=== PATIENT | female | born 1950 | race Caucasian/White ===

== ENCOUNTER → 2019-10-06 | Outpatient (CLI) | payer MEDICARE, MEDICAID, SELFPAY | END | disposition home or self-care (01) | LOC: SLB 10:30 → EDSTATUS 10-13 11:40 | PROVIDERS: ATTEND Colon & Rectal Surgery | DX: Z01.818 Encounter for other preprocedural examination (principal); Z11.59 Encounter for screening for other viral diseases; K80.10 Calculus of gallbladder with chronic cholecystitis without obstruction | CPT/HCPCS: U0003-CS ==

== ENCOUNTER 2019-11-17 09:52 | Day surgery (SDC) | payer MEDICARE, MEDICAID, SELFPAY ==
[2019-11-14 14:54] LABS: BASOPHILS % (AUTO) 0.4 % (0.0-2.0); EOSINOPHILS # (AUTO) 0.2 K/uL (0.0-0.4); EOSINOPHILS % (AUTO) 3.4 % (0.0-4.0); HEMOGLOBIN 8.4 g/dL (12.0-16.0); LYMPHOCYTES # (AUTO) 2.1 K/uL (1.0-5.5); LYMPHOCYTES % (AUTO) 35.3 % (20.5-51.5); MEAN CORPUSCULAR HEMOGLOBIN 38 pg (27-31); MEAN CORPUSCULAR HGB CONC 35 % (32-36); MEAN CORPUSCULAR VOLUME 109 fL (79.0-98.0); MONOCYTES # (AUTO) 0.2 K/uL (0.0-1.0); MONOCYTES % (AUTO) 2.7 % (1.7-9.3); NEUTROPHILS # (AUTO) 3.4 K/uL (1.8-7.7); NEUTROPHILS % (AUTO) 58.2 % (40.0-70.0); PLATELET COUNT (AUTO) 221 K/uL (130-430); RED BLOOD CELL COUNT(AUTO) 2.21 MIL/uL (4.2-6.2); RED CELL DISTRIBUTION WIDTH 33.4 % (9.0-15.0); WHITE BLOOD COUNT (AUTO) 5.9 K/uL (4.8-10.8)
[2019-11-14 14:57] LABS: BILIRUBIN,URINE 1+ (NEGATIVE); BLOOD, URINE NEGATIVE (NEGATIVE); CLARITY/URINE CLEAR (CLEAR); COLOR,URINE YELLOW (YELLOW); GLUCOSE,URINE NEGATIVE (NEGATIVE); KETONES,URINE 1+ (NEGATIVE); LEUKOCYTE ESTERASE ,URINE NEGATIVE (NEGATIVE); NITRITE, URINE NEGATIVE (NEGATIVE); PH,URINE 5.5 (5.0-8.0); PROTEIN URINE NEGATIVE (NEGATIVE); UROBILINOGEN,URINE 0.2 (0.2-1.0)
[2019-11-14 15:04] LABS: PROTHROMBIN TIME 10.3 SECS (9.5-12.5)
[2019-11-14 15:06] LABS: CALCIUM 8.7 mg/dL (8.4-11.0); CREATININE 0.86 mg/dL (0.55-1.30); POTASSIUM 4.2 mmol/L (3.5-5.1); TOTAL BILIRUBIN 0.7 mg/dL (0.0-1.0)
[~2019-11-17] VITALS: Ht 162.6 cm; Wt 61.2 kg
[2019-11-17] MEDS ORDERED: PROPOFOL 200MG/ 20ML VIAL (DIPRIVAN) IV ONE (12:29)
[2019-11-17] MEDS ORDERED: LIDOCAINE 2%, 20 ML MDV INJ ONE (12:29)
[2019-11-17] MEDS ORDERED: HYDROmorphone 1 MG INJ. 1 MG/ML AMPUL IVP PRN ×2 (13:15)
[2019-11-17] MEDS ORDERED: LR 1,000 ML IV SCH (13:15)
[2019-11-17] MEDS ORDERED: MEPERIDINE HCL/PF 25 MG/ML DISP.SYRIN IVP PRN (13:15)
[2019-11-17] MEDS ORDERED: ONDANSETRON HCL 4 MG/2 ML VIAL IVP PRN (13:15)
[2019-11-17] MEDS ORDERED: D5/0.45 NS 1,000 ML IV SCH (13:33)
[2019-11-17 14:09] VITALS: BP_SYST 121
== END 2019-11-17 15:00 | disposition home or self-care (01) ==
LOC: SDS 09:52 → SMU 09:57 → SDS 15:00
PROVIDERS: ATTEND Colon & Rectal Surgery
DX: D64.9 Anemia, unspecified (principal); K29.80 Duodenitis without bleeding; K44.9 Diaphragmatic hernia without obstruction or gangrene; K80.10 Calculus of gallbladder with chronic cholecystitis without obstruction; M81.0 Age-related osteoporosis without current pathological fracture; Z79.84 Long term (current) use of oral hypoglycemic drugs; Z79.899 Other long term (current) drug therapy
CPT/HCPCS: 36415; 43239; 45378; 80053; 81003; 85025; 85610; 85730; 87426; 88305; 88312; 88313; J2001; J2704

== ENCOUNTER 2019-11-24 07:23 | Day surgery (SDC) | payer MEDICARE, MEDICAID, SELFPAY ==
[~2019-11-24] VITALS: Ht 162.6 cm; Wt 61.2 kg
[~2019-11-24 07:23] MED LIST: CEFAZOLIN SOD 1 GM in D5W 50 ML IV ONE
[2019-11-24] MEDS ORDERED: NS IRRIG SOLN 1000 ML IR ONE (09:51)
[2019-11-24] MEDS ORDERED: SUGAMMADEX SODIUM 200 MG/2 ML VIAL IV ONE (09:51)
[2019-11-24] MEDS ORDERED: ISOFLURANE 15 MIN GAS INH ONE (09:51)
[2019-11-24] MEDS ORDERED: MIDAZOLAM HCL 5 MG/5 ML VIAL IVP ONE (09:51)
[2019-11-24] MEDS ORDERED: ONDANSETRON HCL 4 MG/2 ML VIAL IVP ONE (09:51)
[2019-11-24] MEDS ORDERED: MEPERIDINE HCL/PF 100 MG/ML AMP IM ONE (09:51)
[2019-11-24] MEDS ORDERED: DEXAMETHASONE SOD PHOSPHATE 4 MG/ML VIAL IVP ONE (09:51)
[2019-11-24] MEDS ORDERED: LR 1,000 ML IV.SOLN IV ONE (09:51)
[2019-11-24] MEDS ORDERED: KETOROLAC TROMETHAMINE 30 MG VIAL IVP ONE (09:51)
[2019-11-24] MEDS ORDERED: ROCURONIUM BROMIDE 10 MG/ML (ZEMURON) IV ONE (09:51)
[2019-11-24] MEDS ORDERED: PROPOFOL 200MG/ 20ML VIAL (DIPRIVAN) IV ONE (09:51)
[2019-11-24] MEDS ORDERED: BUPIVACAINE /PF 0.25% 30 ML VIAL INJ ONE (09:51)
[2019-11-24] MEDS ORDERED: fentaNYL CITRATE/PF 100 MCG/2 ML AMP IVP ONE (09:51)
[2019-11-24] MEDS ORDERED: D5/0.45 NS 1,000 ML IV SCH (10:58)
[2019-11-24] MEDS ORDERED: LR 1,000 ML IV SCH (11:00)
[2019-11-24] MEDS ORDERED: MEPERIDINE HCL/PF 25 MG/ML DISP.SYRIN IVP PRN (11:00)
[2019-11-24] MEDS ORDERED: ONDANSETRON HCL 4 MG/2 ML VIAL IVP PRN (11:00)
[2019-11-24] MEDS ORDERED: METOCLOPRAMIDE HCL 10 MG/2 ML VIAL IVP PRN (11:00)
[2019-11-24] MEDS ORDERED: HYDROcodone/ACETAMIN 5-325 MG TAB (NORCO/ VICODIN) PO PRN ×2 (11:00)
[2019-11-24] MEDS ORDERED: HYDROmorphone 1 MG INJ. 1 MG/ML AMPUL IVP PRN ×3 (11:00)
[2019-11-24] MEDS ORDERED: MEPERIDINE HCL/PF 25 MG/ML DISP.SYRIN ONE (11:42)
[2019-11-24 12:55] VITALS: BP_SYST 118
== END 2019-11-24 13:20 | disposition home or self-care (01) ==
LOC: SDS 07:23 → SMU 07:24 → SDS 13:20
PROVIDERS: ATTEND Colon & Rectal Surgery
DX: K80.10 Calculus of gallbladder with chronic cholecystitis without obstruction (principal); D64.9 Anemia, unspecified; Z79.899 Other long term (current) drug therapy; Z20.828 Contact with and (suspected) exposure to other viral communicable diseases
CPT/HCPCS: 47562; 86886; 86900; 86901; 36415; 88304; C9399; J3490; J0690; J1100; J1885; J2250; J2405; J2704; J3010; J2175 ×2; Q9967; J7060; J7120; C1758; C1727; U0003